=== PATIENT | male | born 1945 | race Caucasian/White ===

== ENCOUNTER 2019-04-28 18:04 | Emergency (ER) | payer MEDICARE, BC ==
--- OUTSIDE RECORDS SUMMARY | 2019-04-28 18:10 | XMS REPORT | Summary of Care ---
:1945 Author Organization [facility] Address [address] [address] Care Team Providers Name Role Phone Henry Silva MD Primary Care Provider Reason for Visit Reason Comments Follow Up S/P right CTR 02-04-19. Patisalomon is doing well. Encounter Details Date Type Department Care Team Description 03/19/2019 Office Visit [facility] - Iván Kunz MD S/P carpal tunnel [place] [facility] release (Primary Dx) [address] [facility] [address] [place], [place] [id number] [place] [id number] [phone] Allergies Active Allergy Reactions Severity Noted Date Comments Environmental Other 07/05/2010 Itching eyes,sneezing documented as of this encounter (statuses as of 03/19/2019) Medications Medication Sig Dispensed Refills Start Date End Date Status atorvastatin Take 20 mg 0 Active (LIPITOR) 10 MG by mouth Oral Tab DAILY. fluticasone [place] 2 0 Active (FLONASE) 50 Sprays in MCG/ACT Nasal nose DAILY. Suspension GLUCOSAMINE HCL PO Take 1,500 0 Active mg by mouth TWICE DAILY. [place]-3 Fatty Acids Take 1,000 0 Active (FISH OIL) 1000 MG mg by mouth Oral Cap TWICE DAILY. levothyroxine Take 88 mcg 0 Active (SYNTHROID) 88 MCG by mouth Oral Tab BEFORE BREAKFAST. NAPROXEN SODIUM ER Take by 0 Active PO mouth. montelukast TAKE ONE 1 11/17/2018 Active (SINGULAIR) 10 MG TABLET BY Oral Tab MOUTH EVERY DAY Sodium Hyaluronate, 4 mL by 2 Syringe 0 04/13/2013 Discontinued (No [place], Intra-articu 9 longer clinically (EUFLEXXA) 20 lar route indicated) MG/2ML EVERY 7 Intra-articular DAYS. Solution Sodium Hyaluronate, 2 mL by 2 Syringe 0 04/04/2014 Discontinued (No [place], Intra-articu 9 longer clinically (EUFLEXXA) 20 lar route indicated) MG/2ML EVERY 7 Intra-articular DAYS. Solution Sodium Hyaluronate, 2 mL by 1 Syringe 0 04/11/2014 Discontinued (No [place], Intra-articu 9 longer clinically (EUFLEXXA) 20 lar route indicated) MG/2ML EVERY 7 Intra-articular DAYS. Solution Sodium Hyaluronate, 2 mL by 2 Syringe 0 04/18/2014 Discontinued (No [place], Intra-articu 9 longer clinically (EUFLEXXA) 20 lar route indicated) MG/2ML EVERY 7 Intra-articular DAYS. Solution Sodium Hyaluronate, 4 mL by 4 mL 0 03/03/2015 Discontinued (No [place], Intra-articu 9 longer clinically (EUFLEXXA) 20 lar route indicated) MG/2ML EVERY 7 Intra-articular DAYS. SolutionIndications : Knee pain, bilateral Sodium Hyaluronate, 4 mL by 4 mL 0 03/10/2015 Discontinued (No [place], Intra-articu 9 longer clinically (EUFLEXXA) 20 lar route indicated) MG/2ML EVERY 7 Intra-articular DAYS. SolutionIndications : Knee pain, bilateral Hylan 16 MG/2ML 2 mL by 2 Syringe 0 04/19/2016 Discontinued (No Intra-articular Intra-articu 9 longer clinically Solution Prefilled lar route indicated) Syringe EVERY 7 DAYS. Hylan 16 MG/2ML 2 mL by 2 Syringe 0 04/26/2016 Discontinued (No Intra-articular Intra-articu 9 longer clinically Solution Prefilled lar route indicated) Syringe EVERY 7 DAYS. Hospital, Clinic, or Other Ordered Dose Route Frequency Start Date End Date Status Facility Administered Medication Hylan 16 MG/2ML SOSY 2 mL IX [id number] 01/31/2017 Active Hylan 16 MG/2ML SOSY 2 mL IX [id number] 01/31/2017 Active documented as of this encounter (statuses as of 03/19/2019) Active Problems Problem Noted Date S/P carpal tunnel release 02/23/2019 Carpal tunnel syndrome on right 01/18/2019 Primary osteoarthritis of right knee 01/31/2017 Primary osteoarthritis of left knee 01/31/2017 Primary osteoarthritis of both knees 04/12/2016 Knee pain, bilateral 02/24/2015 Arthritis 06/01/2013 Left knee DJD 01/25/2011 Grave's disease 01/11/2011 Right knee DJD 07/12/2010 Osteoarthrosis, unspecified whether generalized or localized, shoulder 2007 region documented as of this encounter (statuses as of 03/19/2019) Immunizations Name Administration Dates Next Due Depo Medrol (80mg) 01/30/2012 Euflexxa (2ml) 04/04/2014, 04/13/2013 Euflexxa (4ml) 03/10/2015, 03/03/2015, 04/18/2014, 04/11/2014 Hyalgan (20 mg) 01/25/2011, 01/25/2011, 01/18/2011, 01/18/2011, 07/19/2010, 07/12/2010, 12/14/2009, 12/08/2009, 01/31/2009 IN-CLINIC MED ADMINISTRATION 02/24/2015, 04/20/2013, 04/06/2013 Influenza (IM) Preservative Free 05/29/2012 Synvisc (16 mg) 04/26/2016, 04/19/2016 Synvisc (32 mg) 05/03/2016 ZOSTER (ZOSTAVAX) VACCINE 06/13/2009 documented as of this encounter Social History Tobacco Use Types Packs/Day Years Used Date Former Smoker Cigarettes 0.5 8 Quit: 1975 Smokeless Tobacco: Never Used Alcohol Use Drinks/Week oz/Week Comments Yes 1 Glasses of wine 2.0 1 glass of wine or beer nightly 1 Cans of beer Sex Assigned at Date Recorded Not on file Job Start Date Occupation Industry Not on file Not on file Not on file Travel History Travel Start Travel End No recent travel history available. documented as of this encounter Last Filed Vital Signs Vital Sign Reading Time Taken Comments Blood Pressure 133/77 03/19/2019 9:00 AM EDT Pulse 74 03/19/2019 9:00 AM EDT Temperature - - Respiratory Rate - - Oxygen Saturation - - Inhaled Oxygen Concentration - - Weight 104.3 kg (230 lb) 03/19/2019 9:00 AM EDT Height 190.5 cm (6' 3") 03/19/2019 9:00 AM EDT Body Mass Index 28.75 03/19/2019 9:00 AM EDT documented in this encounter Progress Notes Iván Kunz MD - 03/19/2019 9:00 AM EDT Name: Kannan Morrison : 1945 Date of Service: 03/19/2019 Chief Complaint Patient presents with Follow Up S/P right CTR 02-04-19. Patiewnt is doing well. History of Present Illness: Kannan Morrison is a 73-y.o. male. The above is noted. Patient is in today for follow up right carpal tunnel. Patient states that he is doing well. Physical Examination: BP 133/77 | Pulse 74 | Ht 6' 3" (1.905 m) | Wt 230 lb (104.3 kg) | BMI 28.75 kg/m Well developed male in minimal discomfort; skin intact Impression: S/p right carpal tunnel procedure Plan: Doing well; follow up prn All questions were answered. There are no Patient Instructions on file for this visit. Author: Iván Kunz MD 03/19/2019 09:17 documented in this encounter Plan of Treatment Health Maintenance Due Date Last Done Comments MEDICARE ANNUAL WELLNESS VISIT 1945 DEPRESSION SCREENING 1959 HIV SCREENING 1962 LIPID DISORDER SCREENING 1965 HEPATITIS C SCREENING 1987 COLONOSCOPY SCREENING 1997 ZOSTER IMMUNIZATION SERIES (2 of 08/08/2009 06/13/2009 3) AAA SCREENING/SURVEILLANCE 2012 FALL RISK ASSESSMENT 2012 PNEUMOCOCCAL 65+YRS (1 of 2 - 2012 PCV13) INFLUENZA VACCINE (#1) 2019 05/29/2012 HPV IMMUNIZATION SERIES Aged Out No longer eligible based on patient's age to complete this topic MENINGOCOCCAL VACCINE IMM Aged Out No longer eligible based on patient's age to complete this topic documented as of this encounter Results Not on filedocumented in this encounter Visit Diagnoses Diagnosis S/P carpal tunnel release - Primary Other postprocedural status documented in this encounter Insurance Payer Benefit Plan / Subscriber ID Effective Dates Phone Address Type Group MEDICARE MEDICARE PART A & B xxxxxxxxxxx 2012-Present Medicare [facility] xxxxxxxxx 2016-Present [place] Guarantor Name Account Type Relation to Date of Phone Billing Patient Address Kannan Morrison Personal/Family 1945 [id number] [phone] [facility] [place] ([place]) [place] [address] documented as of this encounter
[2019-04-28 18:16] VITALS: BP 152/83
[2019-04-28] MEDS ORDERED: Tetracaine 0.5% OPTH.SOL 4 ML* 1 DROP BTL RIGHT EYE ONE (18:48)
[2019-04-28] MEDS ORDERED: Fluorescein Sodium TOPICAL* 1 MG TEST STRIP OPHTHALMIC ONE (18:48)
--- NOTE | 2019-04-28 21:47 | UC ---
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 WAS NOT WEARING EYE PROTECTION. HE TRIED TO FLUSH IT OUT WITH NO IMPROVEMENT IN SYMPTOMS. HIS EYE IS WATERING. HE HAS FOREIGN BODY SENSATION. - History of Current Complaint Chief Complaint: UCEye Stated Complaint: EYE IRRITATION Time Seen by Provider: 04/28/19 18:39 Hx Obtained From: Patient Onset/Duration: Sudden Onset, Lasting Hours, Still Present Timing: Constant Severity Initially: Moderate Severity Currently: Moderate Pain Intensity: 7 Pain Scale Used: 0-10 Numeric Character: Foreign Body Sensation Aggravating Factor(s): Blinking Alleviating Factor(s): Nothing Associated Signs And Symptoms: Positive: Drainage (Clear). Negative: Photophobia - Allergies/Home Medications Allergies/Adverse Reactions: Allergies Allergy/AdvReac Type Severity Reaction Status Date / Time No Known Allergies Allergy Verified 10/01/18 07:57 PMH/Surg Hx/FS Hx/Imm Hx Endocrine History: Hypothyroidism - Surgical History Surgical History: Yes Surgery Procedure, Year, and Place: laminectomy. knee surgery - Family History Known Family History: Positive: Non-Contributory - Social History Alcohol Use: Daily Alcohol Amount: 2-3 drinks Substance Use Type: None Smoking Status (MU): Former Smoker Review of Systems All Other Systems Reviewed And Are Negative: Yes Constitutional: Positive: Negative Eyes: Positive: Drainage, Eye Redness Respiratory: Positive: Negative Cardiovascular: Positive: Negative Gastrointestinal: Positive: Negative Physical Exam Triage Information Reviewed: Yes Appearance: Well-Appearing, Well-Nourished, Pain Distress - MODERATE Vital Signs: Initial Vital Signs Temp 98 F 04/28/19 18:13 Pulse 79 04/28/19 18:13 Resp 18 04/28/19 18:13 BP 152/83 04/28/19 18:13 Pulse Ox 98 04/28/19 18:13 Vital Signs Reviewed: Yes Eyes: Positive: Conjunctiva Inflamed, Discharge - CLEAR, Other: - PERRL, EOMI. NO FB SEEN. FLUORESCEIN UPTAKE 1 O'CLOCK POSITION ENT: Positive: Hearing grossly normal Neck: Positive: Supple Respiratory: Positive: No respiratory distress, No accessory muscle use Cardiovascular: Positive: Pulses Normal Abdomen Description: Positive: Soft Musculoskeletal: Positive: No Edema Neurological: Positive: Alert Psychological: Positive: Age Appropriate Behavior Skin: Negative: Rashes Eye Complaint Course/Dx - Differential Dx/Diagnosis Provider Diagnosis: Corneal abrasion, right Discharge ED - Sign-Out/Discharge Documenting (check all that apply): Patient Departure All imaging exams completed and their final reports reviewed: No Studies - Discharge Plan Condition: Stable Disposition: HOME Prescriptions: Erythromycin OPHTH.OINT* [Ilotycin OPHTH.OINT*] 1 applic RIGHT EYE QID #1 tube Ketorolac 0.5% OPHTH (NF) 1 drop RIGHT EYE QID PRN #1 btl PRN Reason: Pain Patient Education Materials: Corneal Abrasion (ED) Referrals: Vivian Arteaga MD [Primary Care Provider] - If Needed Additional Instructions: USE THE ANTIBIOTIC OINTMENT IN YOUR EYE 4 TIMES DAILY FOR A WEEK. ANTI- INFLAMMATORY EYEDROPS NEEDED FOR DISCOMFORT. IF YOUR SYMPTOMS ARE NOT IMPROVING OVER THE NEXT COUPLE OF DAYS FOLLOW-UP WITH AN EYE DOCTOR. - Billing Disposition and Condition Condition: STABLE Disposition: Home
== END 2019-04-28 19:09 | disposition home or self-care (01) ==
LOC: UCEAST 18:04
DX: S05.01XA Injury of conjunctiva and corneal abrasion without foreign body, right eye, initial encounter (principal); Z87.891 Personal history of nicotine dependence; X58.XXXA Exposure to other specified factors, initial encounter; Y92.810 Car as the place of occurrence of the external cause
CPT/HCPCS: 99212; A9270-GY; G0463

== ENCOUNTER 2020-08-22 10:10 | Observation (INO) ==
[~2020-08-22 10:10] MED LIST: Buffered Lidocaine 1% SYRIN 1 ml INTRADERM ONE; Lactated Ringers 1000 ml BAG 1,000 ML IV SCH
[2020-08-22] MEDS ORDERED: Buffered Lidocaine 1% SYRIN 1 ml INTRADERM ONE (10:37)
[2020-08-22] MEDS ORDERED: ceFAZolin 2 GM PREMIX 2 GM/50 ML BAG ONE (10:37)
[2020-08-22] MEDS ORDERED: Midazolam 2 mg/2 ml VIAL 1 mg/ml 2 ml VIAL (2 mg) ONE (10:48)
[2020-08-22] MEDS ORDERED: Propofol 10 MG/ML 20 ML BTL ONE ×4 (10:48→13:32)
[2020-08-22] MEDS ORDERED: Dexamethasone IV 4 MG/ML VIAL 1 ml VIAL ONE (10:49)
[2020-08-22] MEDS ORDERED: ROPIVACAINE 5 MG/ML 30 ML BTL (0.5%) ONE ×2 (10:49→11:36)
[2020-08-22] MEDS ORDERED: fentaNYL 100 mcg/2 ml 50 MCG/ML VIAL ONE (12:41)
[2020-08-22] MEDS ORDERED: Morphine 2 MG/ML SYRINGE IV PRN (13:40)
[2020-08-22] MEDS ORDERED: diPHENhydraMINE IV 50 MG/ML 1 ml VIAL (BENADRYL) IV PRN (13:40)
[2020-08-22] MEDS ORDERED: Ondansetron 4 mg VIAL 2 MG/ML 2 ml VIAL IV PRN (13:40)
[2020-08-22] MEDS ORDERED: diPHENhydraMINE 25 mg TAB PO PRN (13:40)
[2020-08-22] MEDS ORDERED: Lactulose 30 ml UDC PO PRN (13:40)
[2020-08-22] MEDS ORDERED: Magnesium Hydroxide LIQ 30 ML UDC PO PRN (13:40)
[2020-08-22] MEDS ORDERED: Ondansetron ODT 4 mg TAB 4 MG TAB PO PRN (13:40)
[2020-08-22] MEDS ORDERED: oxyCODONE/Acetamin 5/325 mg TAB ONE (15:05)
[2020-08-22] MEDS: Lactated Ringers 1000 ml BAG 1,000 ML IV SCH (16:31)
[2020-08-22] MEDS: ceFAZolin 1 GM ADVAN 1 GM in NS 0.9% 50 ML 50 ML IVPB SCH (20:03)
[2020-08-22] MEDS: Magnesium Hydroxide LIQ 30 ML UDC PO SCH (22:28)
[2020-08-23] MEDS: Lactated Ringers 1000 ml BAG 1,000 ML IV SCH (02:41)
[2020-08-23] MEDS: ceFAZolin 1 GM ADVAN 1 GM in NS 0.9% 50 ML 50 ML IVPB SCH ×2 (04:09→11:51)
[2020-08-23 05:49] LABS: Hematocrit 39 % (42-52); Hemoglobin 13.5 g/dL (14.0-18.0); Mean Platelet Volume 8.1 fL (7.4-10.4); Platelet Count 144 10^3/uL (150-450)
[2020-08-23 06:03] LABS: BUN/Creatinine Ratio 18.2 (8-20); Calcium 8.7 mg/dL (8.6-10.3); EGFR African American 102.7 (>60); EGFR Non-African American 84.9 (>60); Potassium 4.1 mmol/L (3.5-5.0)
[2020-08-23] MEDS: Magnesium Hydroxide LIQ 30 ML UDC PO SCH (08:14)
[2020-08-23] MEDS ORDERED: Vitamin THERAPEUTIC TAB PO SCH (09:00)
[2020-08-23 11:14] VITALS: BP 147/75
== END 2020-08-23 14:00 | disposition home or self-care (01) ==
LOC: SSU 10:10 → OR 10:10
PROVIDERS: ADMIT Orthopaedic Surgery Adult Reconstructive Orthopaedic Surgery; ATTEND Orthopaedic Surgery Adult Reconstructive Orthopaedic Surgery

== ENCOUNTER 2023-06-24 06:19 | Observation (INO) ==
[~2023-06-24 06:19] MED LIST changes: +Famotidine IV 10 MG/ML 2 ml VIAL (20 mg) IV ONE
[2023-06-24] MEDS ORDERED: Propofol 10 mg/ml 100 ML BTL 1,000 MG/100 ML BTL ONE (06:35)
[2023-06-24] MEDS ORDERED: Acetaminophen IV 1 GM/100ML 1,000 MG/100 ML BAG IV ONE (06:35)
[2023-06-24] MEDS ORDERED: fentaNYL 100 mcg/2 ml 50 MCG/ML VIAL ONE ×2 (07:02→07:09)
[2023-06-24] MEDS ORDERED: Midazolam 5 mg/5 ml VIAL 1 mg/ml 5 ml VIAL (5 mg) ONE (07:02)
[2023-06-24] MEDS ORDERED: ROPIVACAINE 5 MG/ML 30 ML BTL (0.5%) ONE ×2 (07:02→07:05)
[2023-06-24] MEDS ORDERED: Ondansetron 4 mg VIAL 2 MG/ML 2 ml VIAL ONE (07:09)
[2023-06-24] MEDS ORDERED: Midazolam 2 mg/2 ml VIAL 1 mg/ml 2 ml VIAL (2 mg) ONE (07:09)
[2023-06-24] MEDS ORDERED: Phenylephrine IV 10 MG/ML 1 ml VIAL ONE (07:09)
[2023-06-24] MEDS ORDERED: Dexamethasone IV 4 MG/ML VIAL 1 ml VIAL ONE (07:09)
[2023-06-24] MEDS ORDERED: Lidocaine 2% PF 5 ML VIAL ONE (07:09)
[2023-06-24] MEDS ORDERED: ceFAZolin 2 GM PREMIX 2 GM/50 ML BAG ONE (07:12)
[2023-06-24] MEDS ORDERED: Famotidine IV 10 MG/ML 2 ml VIAL (20 mg) ONE (07:12)
[2023-06-24] MEDS ORDERED: Tranexamic Acid 1 GM/100ML BAG 2,000 MG/200 ML BAG IV ONE (07:12)
[2023-06-24 07:35] LABS: Rapid COVID-19 Molecular Undetected (Undetected)
[2023-06-24] MEDS ORDERED: HYDROmorphone 1 MG/1 ML SYRINGE IV PRN (08:17)
[2023-06-24] MEDS ORDERED: Naloxone 0.4 mg VIAL 0.4 mg/ml 1 ml VIAL IV PRN (08:17)
[2023-06-24] MEDS ORDERED: fentaNYL 100 mcg/2 ml 50 MCG/ML VIAL IV PRN (08:17)
[2023-06-24] MEDS ORDERED: Ondansetron 4 mg VIAL 2 MG/ML 2 ml VIAL IV PRN (11:01)
[2023-06-24] MEDS ORDERED: Ondansetron ODT 4 mg TAB 4 MG TAB PO PRN (11:01)
[2023-06-24] MEDS ORDERED: Morphine 2 MG/ML SYRINGE IV PRN (11:01)
[2023-06-24] MEDS ORDERED: Magnesium Hydroxide LIQ 30 ML UDC PO PRN (11:01)
[2023-06-24] MEDS ORDERED: Lactulose 30 ml UDC PO PRN (11:01)
[2023-06-24] MEDS ORDERED: Lactated Ringers 1000 ml BAG 1,000 ML IV SCH (12:00)
[2023-06-24] MEDS: Lactated Ringers 1000 ml BAG 1,000 ML IV SCH ×2 (15:45→22:33)
[2023-06-24] MEDS: ceFAZolin 1 GM in Dextrose 1 GM/50 ML BAG IV SCH (17:22)
[2023-06-24] MEDS: Magnesium Hydroxide LIQ 30 ML UDC PO SCH (21:04)
[2023-06-25] MEDS: ceFAZolin 1 GM in Dextrose 1 GM/50 ML BAG IV SCH ×2 (00:51→08:03)
[2023-06-25 06:26] LABS: Hematocrit 36.9 % (38-53); Hemoglobin 12.9 g/dL (13.2-16.3); Mean Platelet Volume 8.5 fL (7.5-11.2); Platelet Count 135 10^3/uL (150-450)
[2023-06-25 06:53] LABS: Calcium 8.6 mg/dL (8.6-10.3); Creatinine, Serum 0.83 mg/dL (0.67-1.17); Potassium 3.9 mmol/L (3.5-5.0); eGFR CKD-EPI 90.7 (>60)
[2023-06-25] MEDS: Magnesium Hydroxide LIQ 30 ML UDC PO SCH (08:31)
[2023-06-25] MEDS ORDERED: Fluticasone NASAL SPRAY 50MCG 16 gm SPRAY BTL INTRANASAL SCH (09:00)
[2023-06-25] MEDS ORDERED: Vitamin THERAPEUTIC TAB PO SCH (09:00)
[2023-06-25 09:42] VITALS: BP 113/61
== END 2023-06-25 13:39 | disposition home or self-care (01) ==
LOC: SSU 06:19 → OR 06:19
PROVIDERS: ADMIT Orthopaedic Surgery Adult Reconstructive Orthopaedic Surgery; ATTEND Orthopaedic Surgery Adult Reconstructive Orthopaedic Surgery